=== PATIENT | male | born 1985 | race Two or more races ===

== ENCOUNTER 2020-12-11 22:54 | Emergency (ER) | payer OTHER ==
[~2020-12-11] VITALS: Ht 188 cm; Wt 97.0 kg
[2020-12-11] MEDS ORDERED: DIAZ5TAB4 PO (23:41)
--- NOTE | 2020-12-11 23:42 | PHYS DOC ---
Past History Additional Past Medical Histor: chronic back pain Past Surgical History: No Surgical History Adult General Chief Complaint Chief Complaint: BACK PAIN OR INJURY HPI HPI Patient is an otherwise healthy 35-year-old male, who presents with low back pain. 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 States has had multiple MRIs showing pinched nerves but has not had anything done yet. States he has not seen an orthopedic surgeon either. States he exacerbates this about 2 or 3 times a year. Denies any numbness/weakness/tingling. Denies any urinary incontinence or overflow. States he is able to sit, stand and walk without issue just because of discomfort. States he did this couple days ago probably while doing PT. Review of Systems Review of Systems Review of systems otherwise unremarkable except noted in HPI Physical Exam Physical Exam Constitutional: Well developed, well nourished, no acute distress, non-toxic appearance. [] HENT: Normocephalic, atraumatic, bilateral external ears normal, oropharynx moist, no oral exudates, nose normal. [] Neck: Normal range of motion, Cardiovascular:Heart rate regular rhythm, no murmur [] Lungs & Thorax: Bilateral breath sounds clear to auscultation [] Back: Generalized lumbar para muscle spinal tenderness and spasm, neurovascular exam intact, range of motion intact Extremities: No tenderness, no cyanosis, no clubbing, ROM intact, no edema. [] Neurologic: Alert and oriented X 3, normal motor function, normal sensory fun ction, no focal deficits noted. [] Psychologic: Affect normal, judgement normal, mood normal. [] Current Patient Data Vital Signs Vital Signs Date Time Temp Pulse Resp B/P (MAP) Pulse Ox O2 Delivery O2 Flow Rate FiO2 12/11/20 23:19 98.3 62 18 134/83 (100) 98 Room Air EKG EKG [] Radiology/Procedures Radiology/Procedures [] Heart Score C/O Chest Pain: No Risk Factors: Risk Factors: DM, Current or recent (<one month) smoker, HTN, HLP, family history of CAD, obesity. Risk Scores: Risk Factors: DM, Current or recent (<one month) smoker, HTN, HLP, family history of CAD, obesity. Course & Med Decision Making Course & Med Decision Making Patient is a 35-year-old male who presents with low back pain that has been going on for 3 years Vital signs not concerning. Physical exam noted above. Discussed symptom management at home for chronic back pain. Discussed acute management as well and given oral pain medicine in the ED to help over the night. Advised to call his primary care physician first thing in the morning and discussed the need to talk to an orthopedic surgeon. Given work note for the next couple of days to allow recovery. Gave strict return precautions to the ED. Patient grateful, verbalized understanding and agreed with plan of discharge. [] Dragon Disclaimer Dragon Disclaimer This electronic medical record was generated, in whole or in part, using a voice recognition dictation system. Departure Departure: Impression: Primary Impression: Low back pain Disposition: HOME / SELF CARE / HOMELESS Condition: GOOD Referrals: ALLISON SANDERS-[facility] (PCP) Patient Instructions: Back Pain, Adult, Chronic Back Pain Additional Instructions: Thanks for coming into the emergency department tonight and allowing us to take care of you. Please read the attached information carefully go back over things we discussed. Please begin a Tylenol, ibuprofen, ice and a stretching regimen as we discussed. It is very important that you call your primary care physician in the morning to update on your ED visit and discuss the need to talk to an orthopedic surgeon about the further evaluation and treatment options as well as chronic pain management. Please come back to the ED with new or concerning symptoms as we discussed. Scripts Diazepam (DIAZEPAM) 5 Mg Tablet 5 MG PO BID for muscle spasm for 3 Days, #6 TAB Prov: SHADIA CONDE MD 12/11/20 SHADIA CONDE MD Dec 11, 2020 23:42
[2020-12-11 23:54] VITALS: BP 120/63
[2020-12-12] MEDS ORDERED: oxyCODONE/APAP 5/325 1 TAB TABLET PO ONE
[2020-12-12] MEDS ORDERED: diazePAM 5 MG TABLET. PO ONE
[2020-12-12] MEDS ORDERED: IBUPROFEN 800 MG TABLET. PO ONE
== END 2020-12-11 23:56 | disposition home or self-care (01) ==
LOC: ER 22:54 → EDBD 22:54 → ER 23:56
DX: M54.59 Other low back pain (principal); G89.29 Other chronic pain
CPT/HCPCS: 99284